=== PATIENT | female | born 1970 | race Caucasian/White ===

== ENCOUNTER 2025-03-15 11:25 | Emergency (ER) | payer MEDICARE, OTHER ==
[~2025-03-15] VITALS: Ht 157.4 cm; Wt 68.0 kg
[~2025-03-15 11:25] MED LIST: ALBUTEROL0.09 MG/A2 IH; ALPRAZOLAM2 MG PO; ANAPROX DS550 MG PO; BACTRIM DS 8001 TA1 PO; DAYPRO600 M1 PO; GABITRIL4 MG PO; MOTRIN800 MG PO; NEBULIZER AEROS1 DEV; NORFLEX100 MG PO; PREVACID30 M1 PO; PYRIDIUM200 MG PO; ROBAXIN750 MG PO; SINGULAIR10 MG PO; Synthroid,Lev125 MCG PO; TRAMADOL HCL50 MG PO; VALIUM10 MG PO; VITAMIN B12
[2025-03-15 11:37] VITALS: BP 113/76
[2025-03-15] MEDS ORDERED: MELOXICAM15 MG PO (13:27)
== END 2025-03-15 19:16 | disposition home or self-care (01) ==
LOC: ED 11:25
DX: S50.11XA Contusion of right forearm, initial encounter (principal); G43.909 Migraine, unspecified, not intractable, without status migrainosus; F41.9 Anxiety disorder, unspecified; Z79.899 Other long term (current) drug therapy; Z88.8 Allergy status to other drugs, medicaments and biological substances; Z90.710 Acquired absence of both cervix and uterus; Z98.890 Other specified postprocedural states; X58.XXXA Exposure to other specified factors, initial encounter; Y93.89 Activity, other specified; Y92.89 Other specified places as the place of occurrence of the external cause; Y99.8 Other external cause status

== ENCOUNTER 2025-05-05 09:18 | Emergency (ER) | payer MEDICARE, OTHER ==
[~2025-05-05] VITALS: Wt 66.7 kg
[~2025-05-05 09:18] MED LIST changes: +MELOXICAM15 MG PO
[2025-05-05 09:29] VITALS: BP 101/49
[2025-05-05] MEDS ORDERED: ASPIRIN REGIMEN81 M2 PO (09:43)
[2025-05-05] MEDS ORDERED: LAMOTRIGINE150 MG PO (09:43)
[2025-05-05] MEDS ORDERED: NATURE'S BLEND100 M1 PO (09:44)
[2025-05-05] MEDS ORDERED: OMEPRAZOLE40 MG PO (09:45)
[2025-05-05] MEDS ORDERED: TRULICITY0.75 MG/0. SC (09:46)
[2025-05-05] MEDS ORDERED: BUPRENORPHINE-1 EAC1 SL (09:47)
[2025-05-05] MEDS ORDERED: Magnesium Oxid400 MG PO (09:47)
[2025-05-05] MEDS ORDERED: 'XANAX1 MG PO (09:48)
[2025-05-05] MEDS ORDERED: LEVOTHYROXINE112 MCG PO (09:49)
[2025-05-05] MEDS ORDERED: METOPROLOL SUCC50 M1 PO (09:50)
[2025-05-05] MEDS ORDERED: REPATHA SU140 MG/1 M SQ (09:51)
[2025-05-05] MEDS ORDERED: LISINOPRIL10 M1 PO (09:52)
[2025-05-05] MEDS ORDERED: GABAPENTIN600 MG PO (09:52)
[2025-05-05] MEDS ORDERED: OXYBUTYNIN10 MG PO (09:53)
[2025-05-05] MEDS ORDERED: AIRSUPRA 90-810.7 GM INH (09:56)
[2025-05-05] MEDS ORDERED: AVPAK AZITHROM250 MG PO (11:23)
[2025-05-05] MEDS ORDERED: MEDROL DOSEPAK4 MG PO (11:23)
== END 2025-05-05 11:39 | disposition home or self-care (01) ==
LOC: ED 09:18
DX: J44.1 Chronic obstructive pulmonary disease with (acute) exacerbation (principal); M54.9 Dorsalgia, unspecified; M54.2 Cervicalgia; M79.602 Pain in left arm; R05.9 Cough, unspecified; F17.200 Nicotine dependence, unspecified, uncomplicated; Z79.82 Long term (current) use of aspirin; Z88.8 Allergy status to other drugs, medicaments and biological substances; Z79.899 Other long term (current) drug therapy; Z90.711 Acquired absence of uterus with remaining cervical stump; Z20.822 Contact with and (suspected) exposure to COVID-19